=== PATIENT | female | born 1980 | race Caucasian/White ===

== ENCOUNTER 2017-08-23 18:58 | Emergency (ER) | payer MEDICARE, MEDICAID ==
[~2017-08-23] VITALS: Ht 170.2 cm; Wt 132.0 kg
[~2017-08-23 18:58] MED LIST: ALBU18HF2 IH; BECL8.7A7 INH; CEPH500C5 PO; IBUP-1985 PO; KEP500T PO; ONDA8TAB9 PO
[2017-08-23] MEDS ORDERED: ibuprofen tablet 400 MG TABLET PO ONE (19:35)
[2017-08-23] MEDS ORDERED: LORazepam 1 MG tablet PO ONE (19:35)
[2017-08-23] MEDS ORDERED: HYDROcodone/acetaminophen 5mg/325mg tablet PO ONE (19:35)
[2017-08-23 19:54] VITALS: BP 150/95
== END 2017-08-23 19:55 | disposition home or self-care (01) ==
LOC: ER 18:59
DX: M25.531 Pain in right wrist (principal); R56.9 Unspecified convulsions; K21.9 Gastro-esophageal reflux disease without esophagitis; J45.909 Unspecified asthma, uncomplicated; Z90.49 Acquired absence of other specified parts of digestive tract; Z98.890 Other specified postprocedural states; Z88.8 Allergy status to other drugs, medicaments and biological substances; Z79.899 Other long term (current) drug therapy
CPT/HCPCS: 29125; 73110; 99284

== ENCOUNTER 2018-02-11 20:39 | Emergency (ER) | payer MEDICARE, MEDICAID ==
[~2018-02-11] VITALS: Ht 170.2 cm; Wt 125.0 kg
[~2018-02-11 20:39] MED LIST changes: -CEPH500C5 PO
[2018-02-11 23:46] VITALS: BP 107/62
== END 2018-02-12 00:34 | disposition home or self-care (01) ==
LOC: ER 20:40
DX: R56.9 Unspecified convulsions (principal); J45.909 Unspecified asthma, uncomplicated; K21.9 Gastro-esophageal reflux disease without esophagitis; F31.9 Bipolar disorder, unspecified; Z90.49 Acquired absence of other specified parts of digestive tract; Z98.51 Tubal ligation status; Z98.890 Other specified postprocedural states; Z88.8 Allergy status to other drugs, medicaments and biological substances; Z79.899 Other long term (current) drug therapy
CPT/HCPCS: 99283

== ENCOUNTER 2019-07-14 10:50 | Emergency (ER) | payer MEDICARE, MEDICAID ==
[~2019-07-14] VITALS: Ht 170.2 cm; Wt 131.0 kg
[2019-07-14 11:30] LABS: BASOPHILS # (AUTO) 0.1 X10'3 (0-0.2); BASOPHILS % (AUTO) 0.6 % (0-1); EOSINOPHILS # (AUTO) 0.1 X10'3 (0-0.9); EOSINOPHILS % (AUTO) 1.8 % (0-6); HEMATOCRIT 42.4 % (35.0-45.0); HEMOGLOBIN 14.3 g/dl (12.0-16.0); LYMPHOCYTES # (AUTO) 1.2 X10'3 (1.1-4.8); LYMPHOCYTES % (AUTO) 15.3 % (21-51); MEAN CORPUSCULAR HEMOGLOBIN 31.4 PG (27.0-31.0); MEAN CORPUSCULAR HGB CONC 33.8 g/dL (33.0-36.5); MEAN CORPUSCULAR VOLUME 92.9 FL (78-98); MEAN PLATELET VOLUME 8.6 FL (7.4-10.4); MONOCYTES # (AUTO) 0.5 X10'3 (0-0.9); MONOCYTES % (AUTO) 5.9 % (2-12); NEUTROPHILS # (AUTO) 5.9 X10'3 (1.8-7.7); NEUTROPHILS % (AUTO) 76.4 % (42-75); PLATELET COUNT 188 X10'3 (140-440); RED BLOOD COUNT 4.56 X10'6 (4.20-5.60); RED CELL DISTRIBUTION WIDTH 13.5 % (11.5-14.5); WHITE BLOOD COUNT 7.7 X10'3 (4.5-11.0)
[2019-07-14 11:47] LABS: ALANINE AMINOTRANSFERASE 36 U/L (12-78); ALBUMIN 3.5 G/DL (3.4-5.0); ALBUMIN/GLOBULIN RATIO 0.9 (1.1-1.5); ALKALINE PHOSPHATASE 101 IU/L (46-116); ANION GAP 2 (8-16); ASPARTATE AMINO TRANSFERASE 16 U/L (10-37); BILIRUBIN,TOTAL 0.7 MG/DL (0.1-1.0); BLOOD UREA NITROGEN 8 MG/DL (7-18); BUN/CREATININE RATIO 9.1 (6.6-38.0); CHLORIDE 107 MMOL/L (99-107); CREATININE 0.88 MG/DL (0.40-0.90); GLUCOSE 98 MG/DL (70-104); POTASSIUM 4.2 MMOL/L (3.5-5.1); SODIUM 139 MMOL/L (135-145); TOTAL CARBON DIOXIDE 29.7 MMOL/L (24-32); TOTAL PROTEIN 7.2 G/DL (6.4-8.2); eGFR 71 ML/MIN
[2019-07-14] MEDS ORDERED: ketorolac trometh. 30mg/ml inj. IM ONE (11:50)
[2019-07-14] MEDS ORDERED: ONDA4TAB12 PO (12:42)
[2019-07-14 13:01] LABS: URINE HCG NEGATIVE (NEG)
[2019-07-14 13:13] LABS: CLARITY,URINE SLIGHTLY CLOUDY (Clear); COLOR,URINE STRAW (Yellow); GLUCOSE, URINE NEGATIVE (Neg); KETONES,URINE NEGATIVE (Neg); LEUKOCYTE ESTERASE ,URINE SMALL (Neg); NITRITES, URINE NEGATIVE (Neg); OCCULT BLOOD,URINE NEGATIVE (Neg); PH,URINE 6.5 (4.8-8.0); PROTEIN,URINE NEGATIVE (Neg); UROBILINOGEN,URINE 0.2 E.U/dL (0.2-1.0)
[2019-07-14 13:15] LABS: UA COLLECTION TYPE CLN CATCH MIDSTREAM
[2019-07-14 13:23] LABS: SQUAMOUS EPITHELIAL CELL,UR MODERATE /LPF (FEW)
[2019-07-14 13:25] LABS: BACTERIA,URINE 1+ /HPF (Neg); RBC,URINE 0-2 /HPF (0-2); WBC,URINE 0-4 /HPF (0-4)
[2019-07-14] MEDS ORDERED: CEPH500C5 PO (13:34)
[2019-07-14 13:45] VITALS: BP 135/78
== END 2019-07-14 13:47 | disposition home or self-care (01) ==
LOC: ER 10:50
DX: N39.0 Urinary tract infection, site not specified (principal); R11.2 Nausea with vomiting, unspecified; R10.31 Right lower quadrant pain; J45.909 Unspecified asthma, uncomplicated; K21.9 Gastro-esophageal reflux disease without esophagitis; Z90.49 Acquired absence of other specified parts of digestive tract; Z98.890 Other specified postprocedural states; Z98.51 Tubal ligation status; Z88.8 Allergy status to other drugs, medicaments and biological substances; Z79.899 Other long term (current) drug therapy
CPT/HCPCS: 36415; 74176; 80053; 81001; 81025; 85025; 87088; 96372; 99284; J1885

== ENCOUNTER 2019-09-04 11:05 | Emergency (ER) | payer MEDICARE, MEDICAID ==
[~2019-09-04] VITALS: Ht 170.2 cm; Wt 128.6 kg
[~2019-09-04 11:05] MED LIST changes: +CEPH500C5 PO; +ONDA4TAB12 PO
[2019-09-04 11:12] VITALS: BP 137/81
== END 2019-09-04 12:35 | disposition home or self-care (01) ==
LOC: ER 11:05
DX: S93.401A Sprain of unspecified ligament of right ankle, initial encounter (principal); J45.909 Unspecified asthma, uncomplicated; K21.9 Gastro-esophageal reflux disease without esophagitis; F31.9 Bipolar disorder, unspecified; Z90.49 Acquired absence of other specified parts of digestive tract; Z98.51 Tubal ligation status; Z72.89 Other problems related to lifestyle; Z88.8 Allergy status to other drugs, medicaments and biological substances; Z86.69 Personal history of other diseases of the nervous system and sense organs; Z79.899 Other long term (current) drug therapy; X50.1XXA Overexertion from prolonged static or awkward postures, initial encounter; Y93.39 Activity, other involving climbing, rappelling and jumping off; Y92.89 Other specified places as the place of occurrence of the external cause; Y99.8 Other external cause status
CPT/HCPCS: 73610; 73630; 99284

== ENCOUNTER 2019-10-30 12:06 | Emergency (ER) | payer MEDICARE, MEDICAID ==
[~2019-10-30] VITALS: Ht 170.2 cm; Wt 128.0 kg
[2019-10-30 12:15] VITALS: BP 104/74
[2019-10-30] MEDS ORDERED: HYDROcodone/acetaminophen 5mg/325mg tablet PO ONE (13:05)
[2019-10-30] MEDS ORDERED: ondansetron 4mg rapidly disintigrating tab PO ONE (13:05)
[2019-10-30] MEDS ORDERED: ONDA4TAB6 PO (13:28)
[2019-10-30] MEDS ORDERED: HYDR-4383 PO (13:28)
== END 2019-10-30 14:03 | disposition home or self-care (01) ==
LOC: ER 12:06
DX: M25.571 Pain in right ankle and joints of right foot (principal); J45.909 Unspecified asthma, uncomplicated; K21.9 Gastro-esophageal reflux disease without esophagitis; F31.9 Bipolar disorder, unspecified; Z90.49 Acquired absence of other specified parts of digestive tract; Z98.51 Tubal ligation status; Z98.890 Other specified postprocedural states; Z91.048 Other nonmedicinal substance allergy status; Z79.2 Long term (current) use of antibiotics; Z88.8 Allergy status to other drugs, medicaments and biological substances; W18.09XA Striking against other object with subsequent fall, initial encounter; Y93.H2 Activity, gardening and landscaping; Y92.89 Other specified places as the place of occurrence of the external cause; Y99.8 Other external cause status
CPT/HCPCS: 73610; 73630; 99284

== ENCOUNTER 2020-03-18 14:36 | Emergency (ER) | payer MEDICARE, MEDICAID ==
[~2020-03-18] VITALS: Ht 170.2 cm; Wt 130.0 kg
[~2020-03-18 14:36] MED LIST changes: +HYDR-4383 PO; +ONDA4TAB6 PO
[2020-03-18] MEDS ORDERED: ACET-1059 PO (16:08)
[2020-03-18 16:13] VITALS: BP 118/61
== END 2020-03-18 16:14 | disposition home or self-care (01) ==
LOC: ER 14:36
DX: M25.461 Effusion, right knee (principal); J45.909 Unspecified asthma, uncomplicated; K21.9 Gastro-esophageal reflux disease without esophagitis; F31.9 Bipolar disorder, unspecified; Z86.69 Personal history of other diseases of the nervous system and sense organs; Z90.49 Acquired absence of other specified parts of digestive tract; Z98.51 Tubal ligation status; Z98.890 Other specified postprocedural states; Z72.89 Other problems related to lifestyle; Z88.8 Allergy status to other drugs, medicaments and biological substances; Z79.899 Other long term (current) drug therapy
CPT/HCPCS: 73564; 99284